=== PATIENT | male | born 1965 | race Caucasian/White ===

== ENCOUNTER 2019-03-19 00:42 | Outpatient (CLI) | payer OTHER, SELFPAY ==
--- NOTE | 2019-03-19 10:19 | DI.MRI_ITS ---
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 There are no priors for comparison. The conus medullaris has a normal appearance and location. At L 5-S 1, there is disc desiccation. Endplate degenerative signal changes are present. There is a mild diffuse disc bulge. No focal disc herniation or central spinal canal stenosis is seen. There are degenerative changes of the facets. The findings do result in mild bilateral neural foraminal narrowing. At L 4-5, there is disc desiccation. There is a mild diffuse disc bulge. No focal disc herniation or central spinal canal stenosis is seen. No significant neural foraminal stenosis is present. At L 3-4, there is disc desiccation. Small osteophytes and mild endplate degenerative signal changes are present. There is a mild diffuse disc bulge. No focal disc herniation or central spinal canal stenosis is seen. No significant neural foraminal stenosis is present. At L 2-3, there is disc desiccation. Mild endplate degenerative signal changes and small osteophytes are present. No focal disc herniation or central spinal canal stenosis is seen. No significant neural foraminal stenosis is present. L 1-2 is unremarkable. Apart from the degenerative endplate signal changes, marrow signal is within normal limits. IMPRESSION: Multi level degenerative changes in the lumbar spine. The findings do result in mild neural foraminal narrowing at L 5-S 1. No focal disc herniation or significant central spinal canal stenosis.
== END 2019-03-19 01:02 ==
PROVIDERS: PCP Family Medicine Adult Medicine; Visit Provider Family Medicine
DX: M54.32 Sciatica, left side (principal); M54.5 Low back pain; M79.605 Pain in left leg; R20.0 Anesthesia of skin; M51.17 Intervertebral disc disorders with radiculopathy, lumbosacral region
CPT/HCPCS: 72148